=== PATIENT | male | born 1975 ===

== ENCOUNTER 2021-09-15 08:00 | Inpatient (IN) | payer OTHER ==
[2021-11-18 15:39] VITALS: BMI 30.8
[2021-11-22] MEDS ORDERED: LIDOCAINE 1%/EPI 1:100000 (20 ML MULTI DOSE VIAL) ONE (07:06)
[2021-11-22] MEDS ORDERED: GENTAMICIN SO4 80 MG/2 ML VIAL ONE (07:06)
[2021-11-22] MEDS ORDERED: THROMBIN (BOVINE) 5,000 UNIT VIAL TP ONE ×3 (07:06→10:20)
[2021-11-22] MEDS ORDERED: BUPIVACAINE LIPOSOME/PF (EXPAREL) 266 MG/20 ML VIAL ONE (07:06)
[2021-11-22] MEDS ORDERED: LIDOCAINE HCL/PF (2%) 40 MG/2 ML VIAL ONE (07:23)
[2021-11-22] MEDS ORDERED: PROPOFOL 20 ML ONE ×2 (07:23→08:57)
[2021-11-22] MEDS ORDERED: MIDAZOLAM HCL 2 MG/2 ML SINGLE DOSE VIAL ONE (07:23)
[2021-11-22] MEDS ORDERED: ONDANSETRON 4 MG/2 ML VIAL ONE (07:23)
[2021-11-22] MEDS ORDERED: DEXAMETHASONE SOD PHOSPHATE 4 MG/1 ML VIAL ONE (07:23)
[2021-11-22] MEDS ORDERED: ceFAZolin SODIUM 1 GM VIAL IVPB ONE ×2 (07:35→09:10)
[2021-11-22] MEDS ORDERED: VANCOMYCIN 1 GM in NS (PRE-DOCKED) 1,000 MG/250 ML IVPB ONE ×4 (07:35→11:50)
[2021-11-22] MEDS ORDERED: LIDOCAINE 1%/EPI 1:100000 (20 ML MULTI DOSE VIAL) IJ ONE ×2 (07:35→09:20)
[2021-11-22] MEDS ORDERED: VANCOMYCIN 1,000 MG VIAL (RESTRICTED TO ID ONLY) ONE ×2 (07:40→09:16)
[2021-11-22] MEDS ORDERED: GENTAMICIN SO4 80 MG/2 ML VIAL IVPB ONE ×2 (08:19→10:30)
[2021-11-22] MEDS ORDERED: HYDROGEN PEROXIDE 473 ML PO ONE ×2 (08:19→10:30)
[2021-11-22] MEDS ORDERED: KETAMINE HCL 200 MG/20 ML VIAL ONE (09:06)
[2021-11-22] MEDS ORDERED: TRANEXAMIC ACID 1000 MG/10 ML VIAL ONE (09:16)
[2021-11-22] MEDS ORDERED: ceFAZolin SODIUM 1 GM VIAL ONE (09:16)
[2021-11-22] MEDS ORDERED: ROCURONIUM BROMIDE 50 MG/5 ML SYRINGE ONE (10:26)
[2021-11-22] MEDS ORDERED: HYDROmorphone HCl 2 MG/ML VIAL ONE (11:00)
[2021-11-22] MEDS ORDERED: BUPIVACAINE HCL/PF 0.5% (5MG/ML) 10 ML VIAL IJ ONE ×2 (11:07→12:00)
[2021-11-22] MEDS ORDERED: BUPIVACAINE LIPOSOME/PF (EXPAREL) 266 MG/20 ML VIAL NR ONE ×2 (11:07→12:00)
[2021-11-22] MEDS ORDERED: GLYCOPYRROLATE 0.2 MG/1 ML VIAL ONE (12:24)
[2021-11-22] MEDS ORDERED: NEOSTIGMINE METHYLSULFATE 0.5 MG/ML - 10 ML MDV ONE (12:24)
[2021-11-22] MEDS ORDERED: diphenhydrAMINE HCL 25 MG CAPSULE (FP) PO PRN (12:51)
[2021-11-22] MEDS ORDERED: PATIENT'S OWN MEDICATION (NON-FORMULARY) (Ibuprofen [Ibuprofen] 800 MG Tablet) PO PRN (12:55)
[2021-11-22] MEDS ORDERED: ONDANSETRON 4 MG/2 ML VIAL IVPUSH PRN ×2 (12:56→14:11)
[2021-11-22] MEDS ORDERED: oxyCODONE HCL 5 MG TABLET PO PRN ×2 (12:56)
[2021-11-22] MEDS ORDERED: morphine SULFATE 4 MG/ML VIAL IVPUSH PRN (12:56)
[2021-11-22] MEDS ORDERED: LACTATED RINGERS SOLUTION 1,000 ML/1,000 ML INFUS.BAG IV SCH (13:00)
[2021-11-22] MEDS: LACTATED RINGERS SOLUTION 1,000 ML IV SCH ×2 (14:45→15:48)
[2021-11-22] MEDS: DOCUSATE SODIUM 100 MG CAPSULE (FP) PO SCH ×2 (15:50→21:56)
[2021-11-22] MEDS: HEPARIN NA (PORCINE) 5,000 UNITS/ML 1ML VIAL SQ SCH ×2 (15:50→21:55)
[2021-11-22] MEDS: CEFAZOLIN 1 GM in DEXTROSE 5%-WATER 100 ML IVPB SCH ×2 (17:43→18:43)
[2021-11-23] MEDS: HEPARIN NA (PORCINE) 5,000 UNITS/ML 1ML VIAL SQ SCH (05:56)
[2021-11-23] MEDS: DOCUSATE SODIUM 100 MG CAPSULE (FP) PO SCH (06:56)
[2021-11-23 08:07] LABS: HEMATOCRIT 37.3 % (35.4-49); HEMOGLOBIN 12.4 GM/dL (11.7-16.9); MCH 32.5 pg (25.7-33.7); MCHC 33.2 g/dl (32.0-35.9); MEAN CELL VOLUME 97.7 fl (80-96); MEAN PLT VOLUME 8.5 fl (7.5-11.1); PLATELET COUNT 144 10^3/uL (134-434); RBC 3.81 M/mm3 (4.00-5.60); RDW 14.1 % (11.9-15.9); WHITE BLOOD COUNT 15.6 K/mm3 (4.0-10.0)
[2021-11-23 09:42] VITALS: BP 114/56; PULSE 55; RESP 16; TEMP 98.3
[2021-11-23] MEDS ORDERED: FOLIC ACID 1 MG TABLET (FP) PO SCH (10:00)
== END 2021-11-23 11:44 | disposition home or self-care (01) | DRG 304 ==
LOC: J2C 11-22 04:21 → J4W 11-22 15:04
PROVIDERS: ADMIT Neurological Surgery; ATTEND Family Medicine
PROC: 0SG1071 Fusion of 2 or more Lumbar Vertebral Joints with Autologous Tissue Substitute, Posterior Approach, Posterior Column, Open Approach (ICD-10-PCS; 2021-11-22)
PROC: 0QB00ZZ Excision of Lumbar Vertebra, Open Approach (ICD-10-PCS; 2021-11-22)
PROC: 4A1004G Monitoring of Central Nervous Electrical Activity, Intraoperative, Open Approach (ICD-10-PCS; 2021-11-22)
PROC: 0SG10AJ Fusion of 2 or more Lumbar Vertebral Joints with Interbody Fusion Device, Posterior Approach, Anterior Column, Open Approach (ICD-10-PCS; principal; 2021-11-22 08:00)
DX: M47.896 Other spondylosis, lumbar region (principal); F17.210 Nicotine dependence, cigarettes, uncomplicated
CPT/HCPCS: 36415; 72131-TC; 85027; 86850; 86900; 86901; 94760; 97116-GP; 97161-GP; C1713; C1789; J1644